=== PATIENT | male | born 1955 | race Hispanic/Latino ===

== ENCOUNTER 2022-04-24 21:44 | Inpatient (IN) | payer OTHER ==
[2022-04-24] MEDS ORDERED: NA CHLORIDE 0.9% 500 ML ONE (22:32)
[2022-04-24 22:56] LABS: Hematocrit 40.6 % (39.6-49.0); Lymphocytes % 25.2 % (15.3-44.8); MCV 86.8 fL (80-100); RBC Red Blood Cell Count 4.68 M/uL (4.33-5.43)
[2022-04-24 23:16] LABS: Albumin 3.8 g/dL (3.4-5.0); Bilirubin Total 0.4 mg/dL (0.2-1.0); Potassium 3.7 mmol/L (3.5-5.1); Protein, Total 7.8 g/dL (6.4-8.2)
[2022-04-24 23:26] LABS: Urine Blood 3+ (Negative); Urine Glucose Negative (Negative); Urine Protein 3+ (Negative); Urine Specific Gravity 1.015 (1.005-1.030); Urine pH 5.5 (5.0-7.0)
[2022-04-24] MEDS ORDERED: CEFTRIAXONE 2000 MG/VIAL ONE (23:37)
[2022-04-24] MEDS ORDERED: NA CHLORIDE 0.9% 100 ML ONE (23:38)
[2022-04-25 00:04] LABS: Urine Amorphous Sediment 2+ /HPF (NONE SEEN); Urine Bacteria >50 /HPF (NONE SEEN); Urine Mucus 3+ /HPF (NONE SEEN); Urine RBC TNTC /HPF (NONE SEEN)
[2022-04-25] MEDS ORDERED: METOPROLOL TAR 50 MG TAB ONE ×2 (00:23→07:45)
[2022-04-25] MEDS ORDERED: NA CHLORIDE 0.9% 1,000 ML ONE ×2 (00:24→04:25)
[2022-04-25] MEDS ORDERED: METOPROLOL TARTRATE 5 MG/5 ML INJ IV ONE ×2 (00:24→05:49)
[2022-04-25 00:36] LABS: Magnesium 2.1 mg/dL (1.8-2.4); Troponin High Sensitivity 6.6 pg/mL (<58.9)
--- NOTE | 2022-04-25 00:36 | ER ---
Nurse's Notes [facility] Name: Audie Harrison Age: 66 yrs Sex: Male : 1955 Arrival Date: 04/24/2022 Time: 21:49 Bed 5 Private MD: Diagnosis: UTI/ Urinary tract infection, site not specified;Unspecified atrial fibrillation Presentation: 04/24 22:03 Chief complaint: Spouse and/or significant other states: "He is bleeding from his penis tw5 when he urinates.". Coronavirus screen: Vaccine status: Patient reports receiving the 2nd dose of the covid vaccine. Moderna. Ebola Screen: Patient negative for fever greater than or equal to 101.5 degrees Fahrenheit, and additional compatible Ebola Virus Disease symptoms Patient denies exposure to infectious person. Patient denies travel to an Ebola-affected area in the 21 days before illness onset. Initial Sepsis Screen: Does the patient meet any 2 criteria? No. Patient's initial sepsis screen is negative. Does the patient have a suspected source of infection? No. Patient's initial sepsis screen is negative. Risk Assessment: Do you want to hurt yourself or someone else? Patient reports no desire to harm self or others. Onset of symptoms was April 24, 2022 at 21:00. 22:03 Method Of Arrival: Ambulatory tw5 22:03 Acuity: MERCED 3 tw5 Triage Assessment: 22:04 General: Appears in no apparent distress. Behavior is calm, cooperative, appropriate tw5 for age. Pain: Denies pain. Historical: - Allergies: 22:04 No Known Allergies; tw5 - Immunization history:: Flu vaccine is up to date. - Social history:: Smoking status: Patient reports the use of cigarette tobacco products, denies chronic smoking, but will smoke occasionally. Screenin:46 Abuse screen: Denies threats or abuse. Nutritional screening: No deficits noted. ag7 Tuberculosis screening: No symptoms or risk factors identified. Fall Risk No fall in past 12 months (0 pts). No secondary diagnosis (0 pts). IV access (20 points). Ambulatory Aid- None/Bed Rest/Nurse Assist (0 pts). Gait- Normal/Bed Rest/Wheelchair (0 pts) Mental Status- Oriented to own ability (0 pts). Total Glaser Fall Scale indicates No Risk (0-24 pts). Assessment: 22:12 General: Appears in no apparent distress. Behavior is calm, cooperative, appropriate ag7 for age. Pain: Denies pain. Neuro: Level of Consciousness is awake, alert, obeys commands, Oriented to person, place, situation, Appropriate for age. Cardiovascular: Heart tones S1 S2 present muffled Patient's skin is warm and dry. Respiratory: Airway is patent Trachea midline Respiratory effort is even, unlabored, Respiratory pattern is regular, symmetrical, Breath sounds are clear bilaterally. : Reports burning with urination, hematuria. 23:00 Reassessment: Patient and/or family updated on plan of care and expected duration. Pain ag7 level reassessed. Patient is alert, oriented x 3, equal unlabored respirations, skin warm/dry/pink. Patient denies pain at this time. 04/25 00:00 Reassessment: Patient and/or family updated on plan of care and expected duration. Pain ag7 level reassessed. Patient is alert, oriented x 3, equal unlabored respirations, skin warm/dry/pink. Patient denies pain at this time. Patient states feeling better. 01:30 Reassessment: Patient and/or family updated on plan of care and expected duration. Pain ag7 level reassessed. Patient is alert, oriented x 3, equal unlabored respirations, skin warm/dry/pink. Patient denies pain at this time. Patient states feeling better. Patient states symptoms have improved. 03:22 Reassessment: Irrigation started with [address] henry catheter infusing mid ag7 clamp, per Jl ALARM SIGNALER order patient tolerating well clear drainage noted in the catheter tube no blood clots assessed. 04:01 Reassessment: Irrigation stopped per Jl ALARM SIGNALER order. 800 ml of hematuria noted cola ag7 colored. 04:42 Reassessment: Report given to Brooke RAMSEY. ag7 Vital Signs: 04/24 22:00 BP 130 / 92; Pulse 95; Resp 18 S; Pulse Ox 96% on R/A; Pain 0/10; ag7 22:03 BP 120 / 85; Pulse 99; Resp 18; Temp 98.6; Pulse Ox 99% on R/A; Weight 122.47 kg; tw5 Height 5 ft. 8 in. (172.72 cm); Pain 0/10; 22:30 BP 130 / 119; Pulse 126; Resp 18 S; Pulse Ox 97% ; Pain 0/10; ag7 23:00 BP 92 / 64; Pulse 86; Resp 16 S; Pulse Ox 96% on R/A; Pain 0/10; ag7 23:15 BP 108 / 92; Pulse 143; Pulse Ox 96% on R/A; ag7 23:30 BP 92 / 64; Pulse 86; Resp 16 S; Pulse Ox 96% on R/A; ag7 04/25 00:00 BP 118 / 83; Pulse 90; Resp 16 S; Pulse Ox 96% on R/A; Pain 0/10; ag7 00:30 BP 115 / 84; Pulse 68; Resp 20 S; Pulse Ox 97% on R/A; Pain 0/10; ag7 01:00 BP 114 / 90; Pulse 59; Resp 20 S; Pulse Ox 96% ; Pain 0/10; ag7 02:05 BP 152 / 111; Pulse 105; Resp 19 S; Pulse Ox 95% on R/A; Pain 0/10; ag7 02:30 BP 98 / 58; Pulse 72; Resp 19 S; Pulse Ox 97% on R/A; Pain 0/10; ag7 03:01 BP 139 / 85; Pulse 60; Resp 19 S; Temp 98(O); Pulse Ox 96% on R/A; Pain 0/10; ag7 04/24 22:03 Body Mass Index 41.05 (122.47 kg, 172.72 cm) tw5 ED Course: 04/24 21:49 Patient arrived in ED. ja2 21:55 Channing Huizar PA is PHCP. cp 21:55 Asael Tucker MD is Attending Physician. cp 22:04 Triage completed. tw5 22:04 Arm band placed on Patient placed in an exam room. tw5 22:08 Treva Parks, ROXY is Primary Nurse. ag7 22:37 CBC with Diff Sent. ag7 22:37 CMP Sent. ag7 22:37 Lipase Sent. ag7 22:37 No provider procedures requiring assistance completed. Inserted saline lock: 20 gauge ag7 in right antecubital area, using aseptic technique. Blood collected. 22:38 Procalcitonin Sent. ag7 23:27 Urine Microscopic Only Sent. ag7 23:47 Patient has correct armband on for positive identification. Placed in gown. Bed in low ag7 position. Call light in reach. Adult w/ patient. 04/25 00:09 EKG done, by exhibit technician. reviewed by Channing MICHEL. oe 00:27 XRAY Chest (1 view) In Process Unspecified. EDMS 00:35 Christopher Carrillo MD is Hospitalizing Provider. cp 00:38 TSH Sent. ag7 00:38 Lactate Sent. ag7 00:39 Ptt, Activated Sent. ag7 00:39 Ptt, Activated Sent. ag7 00:40 UDS Sent. ag7 01:29 COVID-19 SARS RT PCR (Document "Date of Onset" if Symptomatic) Sent. ag7 01:35 Abdomen In Process Unspecified. EDMS 02:34 3-way catheter inserted, using sterile technique, 26 Fr. 50 ml hematuria noted. ag7 08:24 Patient admitted, IV remains in place. ap3 Administered Medications: 04/24 22:34 Drug: NS 0.9% 500 ml Route: IV; Rate: 250 ml/hr; Site: right antecubital; ag7 23:00 Follow up: IV Status: Completed infusion; IV Intake: 500ml ag7 23:41 Drug: Rocephin - (cefTRIAXone) 2 grams Route: IVPB; Infused Over: 30 mins; Site: right ag7 antecubital; 04/25 00:09 Follow up: IV Status: Completed infusion; IV Intake: 100ml ag7 00:30 Drug: Metoprolol 50 mg Route: PO; ag7 01:13 Follow up: Response: Marked relief of symptoms ag7 00:30 Drug: NS 0.9% 1000 ml Route: IV; Rate: 1 bolus; Site: right antecubital; ag7 01:50 Follow up: IV Status: Completed infusion; IV Intake: 1000ml ag7 00:37 Drug: Metoprolol 5 mg Route: IVP; Site: right antecubital; ag7 01:13 Follow up: Response: No adverse reaction; Marked relief of symptoms ag7 Medication: 04/24 23:47 VIS not applicable for this client. ag7 Intake: 23:00 IV: 500ml; Total: 500ml. ag7 04/25 00:09 IV: 100ml; Total: 600ml. ag7 01:50 IV: 1000ml; Total: 1600ml. ag7 Output: 02:34 Urine: 750ml (Voided); Total: 750ml. ag7 Outcome: 00:36 Decision to Hospitalize by Provider. cp 08:23 Admitted to ER Hold. Please see [facility] for further documentation. ap3 08:23 Condition: good 08:23 Instructed on the need for admit. 15:37 Patient left the ED. aa5 Signatures: Dispatcher [employer] EDMirela Sumner RN RN aa5 Channing Huizar PA PA cp Ramin Parikh Amanda RN RN ap3 Angely Candelaria Tiffany 5 Treva Parks RN RN ag7 Corrections: (The following items were deleted from the chart) 03:30 03:22 Reassessment: Irrigation started with [address] henry catheter ag7 infusing mid clamp, patient tolerating well clear drainage noted. ag7
--- NOTE | 2022-04-25 00:37 | EDPHYS ---
Physician Documentation [facility] Name: Audie Harrison Age: 66 yrs Sex: Male : 1955 Arrival Date: 04/24/2022 Time: 21:49 Bed 5 Private MD: ED Physician Asael Tukcer HPI: 04/24 22:10 This 66 yrs old Male presents to ER via Ambulatory with complaints of Urinary cp Problem. 22:10 The patient presents with urinary symptoms, dysuria, hematuria. Onset: The cp symptoms/episode began/occurred today. Associated signs and symptoms: Pertinent negatives: abdominal pain, constipation, fever, vomiting. 22:10 Severity of symptoms: in the emergency department the symptoms are unchanged, despite cp home interventions. Historical: - Allergies: 22:04 No Known Allergies; tw5 - Immunization history:: Flu vaccine is up to date. - Social history:: Smoking status: Patient reports the use of cigarette tobacco products, denies chronic smoking, but will smoke occasionally. ROS: 22:15 Constitutional: Negative for body aches, chills, fever, poor PO intake. cp 22:15 Eyes: Negative for injury, pain, redness, and discharge. cp 22:15 ENT: Negative for drainage from ear(s), ear pain, sore throat, difficulty swallowing, difficulty handling secretions. 22:15 Cardiovascular: Negative for chest pain, edema, palpitations. 22:15 Respiratory: Negative for cough, shortness of breath, wheezing. 22:15 Abdomen/GI: Negative for abdominal pain, vomiting, diarrhea, constipation, black/tarry stool, rectal bleeding. 22:15 Back: Negative for pain at rest, pain with movement. 22:15 : Positive for hematuria, burning with urination, Negative for pelvic pain, flank pain, testicular pain 22:15 Neuro: Negative for altered mental status, dizziness, headache, numbness, syncope, weakness. 22:15 All other systems are negative. Exam: 22:20 Constitutional: The patient appears in no acute distress, alert, awake, cp non-diaphoretic, non-toxic, well developed, well nourished, afebrile 22:20 Head/Face: Normocephalic, atraumatic. cp 22:20 Eyes: Periorbital structures: appear normal, Conjunctiva: normal, no exudate, no cp injection, Sclera: no appreciated abnormality, Lids and lashes: appear normal, bilaterally. 22:20 ENT: External ear(s): are unremarkable, Nose: is normal, Mouth: Lips: moist, Oral mucosa: moist, Posterior pharynx: Airway: no evidence of obstruction, patent. 22:20 Chest/axilla: Inspection: normal. 22:20 Cardiovascular: Rate: normal, Edema: is not appreciated, JVD: is not appreciated. 22:20 Respiratory: the patient does not display signs of respiratory distress, Respirations: normal, no use of accessory muscles, no retractions, labored breathing, is not present, Breath sounds: are clear throughout, no decreased breath sounds, no stridor, no wheezing. 22:20 Abdomen/GI: Inspection: abdomen appears normal, Bowel sounds: active, all quadrants, Palpation: abdomen is soft and non-tender, in all quadrants. 22:20 Back: CVA tenderness, is absent. 22:20 Neuro: Orientation: to person, place \\T\\ time. Mentation: is normal, Motor: moves all fours, strength is normal, Sensation: is normal. 22:20 Skin: cellulitis, is not appreciated, no rash present. cp Vital Signs: 22:00 BP 130 / 92; Pulse 95; Resp 18 S; Pulse Ox 96% on R/A; Pain 0/10; ag7 22:03 BP 120 / 85; Pulse 99; Resp 18; Temp 98.6; Pulse Ox 99% on R/A; Weight 122.47 kg; tw5 Height 5 ft. 8 in. (172.72 cm); Pain 0/10; 22:30 BP 130 / 119; Pulse 126; Resp 18 S; Pulse Ox 97% ; Pain 0/10; ag7 23:00 BP 92 / 64; Pulse 86; Resp 16 S; Pulse Ox 96% on R/A; Pain 0/10; ag7 23:15 BP 108 / 92; Pulse 143; Pulse Ox 96% on R/A; ag7 23:30 BP 92 / 64; Pulse 86; Resp 16 S; Pulse Ox 96% on R/A; ag7 06/10 00:00 BP 118 / 83; Pulse 90; Resp 16 S; Pulse Ox 96% on R/A; Pain 0/10; ag7 00:30 BP 115 / 84; Pulse 68; Resp 20 S; Pulse Ox 97% on R/A; Pain 0/10; ag7 01:00 BP 114 / 90; Pulse 59; Resp 20 S; Pulse Ox 96% ; Pain 0/10; ag7 02:05 BP 152 / 111; Pulse 105; Resp 19 S; Pulse Ox 95% on R/A; Pain 0/10; ag7 02:30 BP 98 / 58; Pulse 72; Resp 19 S; Pulse Ox 97% on R/A; Pain 0/10; ag7 03:01 BP 139 / 85; Pulse 60; Resp 19 S; Temp 98(O); Pulse Ox 96% on R/A; Pain 0/10; ag7 04/24 22:03 Body Mass Index 41.05 (122.47 kg, 172.72 cm) tw5 MDM: 04/24 22:02 Patient medically screened. cp 23:00 Differential diagnosis: UTI, prostatitis, urethritis, kidney stone. 04/25 00:52 Data reviewed: vital signs, nurses notes, lab test result(s), EKG, radiologic studies, cp plain films. Test interpretation: by ED physician or midlevel provider: ECG, plain radiologic studies. Physician consultation: Jl Cartwright was contacted at 00:45, regarding admission, to the telemetry unit. patient's condition, and will see patient in ED, shortly. 04/24 22:06 Order name: Urine Microscopic Only; Complete Time: 00:06 cp 04/25 00:07 Interpretation: Normal except: UWBC 10-20; URBC TNTC; UBACT >50; MUCUS 3+; AMORPH 2+. cp 04/24 22:06 Order name: CBC with Diff; Complete Time: 23:06 cp 04/24 23:16 Interpretation: Normal except: HGB 13.2; MPV 7.0. cp 04/24 22:06 Order name: CMP; Complete Time: 23:28 cp 04/24 23:29 Interpretation: Normal except: NA 135; GLUC 107; GLOB 4.0; A/G 1.0; AST 14. cp 04/24 22:06 Order name: Lipase; Complete Time: 23:28 cp 04/24 23:43 Interpretation: Reviewed. 04/24 22:06 Order name: Procalcitonin; Complete Time: 23:28 cp 04/24 23:43 Interpretation: Reviewed. 04/24 23:27 Order name: Urine Dipstick-Ancillary; Complete Time: 23:28 EDMS 04/24 23:29 Interpretation: UKET 1+; UBLD 3+; UPROT 3+; U NIT Positive; UESTR 3+. cp 04/25 00:09 Order name: Urine Culture EDMS 04/25 00:10 Order name: BNP; Complete Time: 00:42 cp 04/25 00:10 Order name: Magnesium; Complete Time: 00:42 cp 04/25 00:10 Order name: Troponin High Sensitivity; Complete Time: 00:42 cp 04/25 00:10 Order name: Ptt, Activated; Complete Time: 01:02 cp 04/25 00:10 Order name: Ptt, Activated cp 04/25 00:10 Order name: Lactate; Complete Time: 01:32 cp 04/25 00:21 Order name: TSH; Complete Time: 01:32 la1 04/24 22:06 Order name: Urine Dipstick-Ancillary (obtain specimen); Complete Time: 23:26 cp 04/24 22:06 Order name: IV Saline Lock; Complete Time: 22:34 cp 04/24 22:06 Order name: Labs collected and sent; Complete Time: 22:34 cp 04/24 23:55 Order name: EKG; Complete Time: 23:56 cp 04/24 23:55 Order name: EKG - Nurse/Tech; Complete Time: 00:09 cp 04/25 00:10 Order name: XRAY Chest (1 view) 04/25 00:21 Order name: UDS; Complete Time: 01:32 la1 04/25 01:09 Order name: Abdomen EDFL 04/25 01:14 Order name: COVID-19 SARS RT PCR (Document "Date of Onset" if Symptomatic) lp1 04/25 05:23 Order name: CBC with Automated Diff EDMS 04/25 05:43 Order name: Comprehensive Metabolic Panel EDFL 04/25 01:33 Order name: Beth-Three way: with bladder irrigation; Complete Time: 02:36 la1 Administered Medications: 04/24 22:34 Drug: NS 0.9% 500 ml Route: IV; Rate: 250 ml/hr; Site: right antecubital; ag7 23:00 Follow up: IV Status: Completed infusion; IV Intake: 500ml ag7 23:41 Drug: Rocephin - (cefTRIAXone) 2 grams Route: IVPB; Infused Over: 30 mins; Site: right ag7 antecubital; 04/25 00:09 Follow up: IV Status: Completed infusion; IV Intake: 100ml ag7 00:30 Drug: Metoprolol 50 mg Route: PO; ag7 01:13 Follow up: Response: Marked relief of symptoms ag7 00:30 Drug: NS 0.9% 1000 ml Route: IV; Rate: 1 bolus; Site: right antecubital; ag7 01:50 Follow up: IV Status: Completed infusion; IV Intake: 1000ml ag7 00:37 Drug: Metoprolol 5 mg Route: IVP; Site: right antecubital; ag7 01:13 Follow up: Response: No adverse reaction; Marked relief of symptoms ag7 Disposition Summary: 04/25/22 00:36 Hospitalization Ordered Hospitalization Status: Inpatient Admission cp Provider: Christopher Carrillo cp Condition: Stable cp Problem: new cp Symptoms: have improved cp Bed/Room Type: Standard cp Location: Telemetry/MedSurg (Inpatient)(04/25/22 15:19) eb Room Assignment: 407(04/25/22 15:19) eb Diagnosis - UTI/ Urinary tract infection, site not specified cp - Unspecified atrial fibrillation cp Forms: - Medication Reconciliation Form cp - SBAR form cp Addendum: 04/28/2022 10:16 Co-signature as Attending Physician, Asael Tucker MD. r n Signatures: Dispatcher [employer] EDAsael Vargas MD MD rn Attema, Lee, PROJECT DEVELOPMENT DIRECTOR-C PROJECT DEVELOPMENT DIRECTOR-Cla1 Channing Huizar PA PA cp Garcia, Cindy, RN Misti Minor Tiffany tw5 Treva Parks RN RN ag7 Corrections: (The following items were deleted from the chart) 04/24 23:29 23:28 Normal except: NA 135; GLUC 107; GLOB 4.0; A/G 1.0. cp cp 04/25 02:21 00:36 Telemetry/MedSurg (Inpatient) cp cg 02:21 00:36 cp cg 15:19 02:21 [facility] ER HOLD cg eb 15:19 02:21 ERHOLD- cg eb
[2022-04-25 01:14] LABS: Barbiturates NEGATIVE (NEGATIVE); Benzodiazepines NEGATIVE (NEGATIVE); Cocaine NEGATIVE (NEGATIVE); METHAMPHETAM NEGATIVE (NEGATIVE); Methadone NEGATIVE (NEGATIVE); Opiates NEGATIVE (NEGATIVE); Phencyclidine NEGATIVE (NEGATIVE); THC Cannibis POSITIVE (NEGATIVE)
[2022-04-25] MEDS ORDERED: NACL 0.9% IRR SOLN 2,000 ML IRR ONE (03:08)
[2022-04-25] MEDS ORDERED: MORPHINE 2 MG/ML SYR IV PRN (03:51)
[2022-04-25] MEDS ORDERED: ONDANSETRON 4 MG/2 ML VIAL IV PRN (03:51)
[2022-04-25] MEDS ORDERED: HYDROCODONE/APAP 5/325 MG TAB PO PRN (03:51)
[2022-04-25] MEDS: NA CHLORIDE 0.9% 1,000 ML IV SCH ×2 (04:00→17:14)
--- NOTE | 2022-04-25 04:01 | P.HP ---
Certification for Inpatient Patient admitted to: Inpatient With expected LOS: >2 Midnights Patient will require the following post-hospital care: None Practitioner: I am a practitioner with admitting privileges, knowledge of patient current condition, hospital course, and medical plan of care. Services: Services provided to patient in accordance with Admission requirements found in Title 42 Section 412.3 of the Code of Federal Regulations Patient History Date of Service: 04/25/22 Reason for admission: New onset A. fib, UTI History of Present Illness: 66-year-old male with a history of BPH presents the emergency department for hematuria, he was found to have urinary tract infection with urinalysis positive for nitrite, leukocyte, red blood cell urine microscopic shows greater than 50 bacteria 10-20 white blood cells too numerous to count red blood cells. During his stay in the emergency department patient developed A. fib RVR no history of A. fib his rate was around 150 160 he was given Lopressor IV and p.o., he has maintained A. fib rhythm but his rate is not controlled around 80 to 90 bpm. He had a three-way Beth catheter placed for irrigation to assess the degree of bleeding, he has had only very mild amount of bleeding during his stay in the emergency department which cleared quickly with irrigation, no obstruction or large clots noted. Urine cultures obtained patient was given Rocephin ED prior wishes to admit for further evaluation and management of new onset atrial fibrillation, UTI with hematuria. - Past Medical/Surgical History -: BPH -: Multisystem trauma with Ortho surgery of the legs Psychosocial/ Personal History: Patient lives at home with his - Family History Mother -: Diabetes - Social History Smoking Status: Current some day smoker Alcohol use: No CD- Drugs: No Caffeine use: Yes Place of Residence: Home Review of Systems 10-point ROS is otherwise unremarkable Genitourinary: Dysuria, Hematuria, As per HPI Physical Examination - Physical Exam General: Alert, In no apparent distress, Oriented x3 HEENT: Atraumatic, PERRLA, Mucous membr. moist/pink, EOMI, Sclerae nonicteric Neck: Supple, 2+ carotid pulse no bruit, No LAD, Without JVD or thyroid abnormality Respiratory: Clear to auscultation bilaterally, Normal air movement Cardiovascular: Normal S1 S2, Irregular heart rate/rhythm Capillary refill: <2 Seconds Gastrointestinal: Normal bowel sounds, No tenderness Musculoskeletal: No tenderness Integumentary: No rashes Neurological: Normal speech, Normal strength at 5/5 x4 extr, Normal tone, Normal affect Lymphatics: No axilla or inguinal lymphadenopathy Urinary: Beth catheter - Studies Laboratory Data (last 24 hrs) 04/25/22 00:20: APTT 39.2 H 04/24/22 22:35: Magnesium 2.1 04/24/22 22:35: Sodium 135 L, Potassium 3.7, BUN 16, Creatinine 0.69, Glucose 107 H, Total Bilirubin 0.4, AST 14 L, ALT 25, Alkaline Phosphatase 103, Lipase 228 04/24/22 22:35: WBC 7.8, Hgb 13.2 L, Hct 40.6, Plt Count 285 Assessment and Plan - Plan Assessment: New onset atrial fibrillation with rapid ventricular response UTI with hematuria Plan: New onset atrial fibrillation with rapid ventricular response: Rate now controlled after beta-antonio we will continue metoprolol 50 mg p.o. twice daily, cardiology consult in place echocardiogram ordered thyroid studies and UDS pending. We will hold off on anticoagulation given materia secondary to UTI. Appreciate further input from cardiology UTI with hematuria: Urine culture obtained patient started on Rocephin. Three- way catheter was placed in the ER he had some irrigation was returning clear urine without any large clots noted, CBI was discontinued given return of clear urine Beth catheter still in place. CT demonstrates enlarged prostate gland with impression and excrescence along the inferior aspect of the urinary bladder correlate with the PSA level also noted exophytic upper pole right renal cyst with rim wall calcification measuring 7.8 x 6.6 cm, discussed with patient recommend outpatient follow-up with urology once he is discharged for further evaluation of prostate/renal cyst. Patient and family verbalized understanding. Continue IV antibiotics. DVT PPX: SCD given hematuria Code status: Full Discharge Plan: Home Plan to discharge in: 48 Hours - Advance Directives Does patient have a Living Will: No Does patient have a Durable POA for Healthcare: No - Code Status/Comfort Care Code Status Assessed: Yes (Full code) Critical Care: No Time Spent Managing Pts Care (In Minutes): 70
[2022-04-25 04:15] VITALS: BMI 41.0
[2022-04-25 05:22] LABS: Absolute Lymphocytes (CBC) 1.6 K/uL (0.7-4.9); Hematocrit 43.4 % (39.6-49.0); Lymphocytes % 13.8 % (15.3-44.8); MCV 87.6 fL (80-100); MPV 7.3 fL (7.6-11.3); RBC Red Blood Cell Count 4.95 M/uL (4.33-5.43)
[2022-04-25 05:43] LABS: Albumin 3.7 g/dL (3.4-5.0); Bilirubin Total 0.5 mg/dL (0.2-1.0); Potassium 4.1 mmol/L (3.5-5.1); Protein, Total 7.8 g/dL (6.4-8.2)
[2022-04-25] MEDS ORDERED: METOPROLOL TARTRATE 5 MG/5 ML INJ IV STA (05:54)
--- NOTE | 2022-04-25 06:16 | EKG ---
Test Date: 2022-04-24 Test Time: 23:59:37 Building Mover: LETITIA MEASUREMENT RESULTS: Intervals: Rate: 148 AL: QRSD: 92 QT: 300 QTc: 471 [place]: P: AL: QRS: -58 T: 78 INTERPRETIVE STATEMENTS: Atrial fibrillation with rapid ventricular response Left axis deviation Minimal voltage criteria for LVH, may be normal variant Abnormal ECG Compared to ECG 10/31/2016 12:13:44 Left-axis deviation now present Left ventricular hypertrophy now present Sinus rhythm no longer present Left anterior fascicular block no longer present Myocardial infarct finding no longer present Electronically Signed On 04-25-22 06:15:40 CDT by Brad Jason
[2022-04-25] MEDS ORDERED: TAMSULOSIN 0.4 MG SR CAP ONE (07:45)
[2022-04-25] MEDS: TAMSULOSIN 0.4 MG SR CAP PO SCH (07:48)
[2022-04-25] MEDS ORDERED: METOPROLOL TAR 50 MG TAB PO SCH (09:00)
--- NOTE | 2022-04-25 10:58 | EKG ---
Test Date: 2022-04-25 Test Time: 00:00:28 Crate Builder: LETITIA MEASUREMENT RESULTS: Intervals: Rate: 144 MN: QRSD: 92 QT: 300 QTc: 464 [place]: P: MN: QRS: -61 T: 80 INTERPRETIVE STATEMENTS: Atrial fibrillation with rapid ventricular response Left anterior fascicular block Minimal voltage criteria for LVH, may be normal variant Abnormal ECG Compared to ECG 04/24/2022 23:59:37 Left anterior fascicular block now present Left-axis deviation no longer present Electronically Signed On 04-25-22 10:58:04 CDT by Brad Jason
--- NOTE | 2022-04-25 11:16 | ECHO ---
HEIGHT: 5 ft 8 in WEIGHT: 270 lb 0.002 oz DATE OF STUDY: 04/25/[address]: Jl Cartwright NP 2-DIMENSIONAL: YES M.MODE: YES DOPPLER: YES COLOR FLOW: YES TDS: NO PORTABLE: YES DEFINITY: NO BUBBLE STUDY: NO DIAGNOSIS: NEW ONSET ATRIAL FIBRILLATION CARDIAC HISTORY: CATHERIZATION: SURGERY: PROSTHETIC VALVE: PACEMAKER: MEASUREMENTS (cm) DIASTOLIC (NORMALS) SYSTOLIC (NORMALS) IVSd 1.4 (0.6-1.2) LA Diam 3.3 (1.9-4.0) LVEF 62% LVIDd 3.8 (3.5-5.7) LVIDs 2.6 (2.0-3.5) %FS 33% LVPWd 1.2 (0.6-1.2) Ao Diam 2.7 (2.0-3.7) 2 DIMENSIONAL ASSESSMENT: RIGHT ATRIUM: NORMAL LEFT ATRIUM: NORMAL RIGHT VENTRICLE: NORMAL LEFT VENTRICLE: NORMAL TRICUSPID VALVE: NORMAL MITRAL VALVE: NORMAL PULMONIC VALVE: NORMAL AORTIC VALVE: NORMAL PERICARDIAL EFFUSION: NONE AORTIC ROOT: NORMAL LEFT VENTRICULAR WALL MOTION: NORMAL DOPPLER/COLOR FLOW: NORMAL COMMENTS: ATRIAL FIBRILLATION. NORMAL LEFT ATRIAL SIZE. NO THROMBUS. NORMAL LEFT VENTRICULAR SIZE AND FUNCTION. TECHNOLOGIST: Yung ASH
[2022-04-25] MEDS: SOTALOL HCL 80 MG TAB PO SCH (17:06)
[2022-04-25 18:16] LABS: Urine Appearance TURBID (Clear); Urine Bilirubin Negative (Negative); Urine Blood 3+ (Negative); Urine Glucose Negative (Negative); Urine Protein 2+ (Negative); Urine Urobilinogen 0.2 mg/dL (0.2-1.0)
[2022-04-25 19:06] LABS: Urine Microscopic Reflex ORDER UMIC
[2022-04-25 19:18] LABS: Urine Bacteria 20-50 /HPF (NONE SEEN); Urine Color BROWN (Yellow); Urine RBC 20-50 /HPF (NONE SEEN)
[2022-04-25] MEDS: CEFTRIAXONE 1,000 MG in NA CHLORIDE 0.9% 50 ML IVPB SCH (21:34)
--- NOTE | 2022-04-25 23:00 | RAD REPORT ---
EXAM DESCRIPTION: CT - Abdomen Pelvis W Contrast - 04/25/2022 5:49 am CLINICAL HISTORY: 66 years, Male, Roger hematuria R/O obstruction COMPARISON: None TECHNIQUE: Contrast-enhanced images of the abdomen and pelvis were performed utilizing 2 mm slice th ickness at 2 mm interval reconstruction from the lung bases to the ischial tuberosities after the adm inistration IV contrast. In addition multiplanar reformats in the coronal and sagittal plane were obtained and reviewed. This exam was performed according to our departmental dose-optimization protocol, which includes auto mated exposure control, adjustment of the mA and/or kV according to patient size and/or use of iterat ceferino reconstruction technique. FINDINGS: The lung bases demonstrate to be clear. The liver, gallbladder, pancreas, spleen and adrenal glands demonstrate to be unremarkable, no focal lesions are noted. The kidneys demonstrate normal uptake of contrast media. No evidence for nephrolithiasis and/or hydro nephrosis. There is a exophytic upper pole right renal cysts with rim wall calcification measuring 7. 8 x 6.6 cm on image 37/59. Several other smaller cysts are noted within the right and left kidney Grossly the unopacified stomach, small bowel and large bowel demonstrate to be within normal limits. There is no evidence for bowel dilatation and/or free air. The appendix is normal. There is minimal diverticulosis within the sigmoid colon. The urinary bladder demonstrate to be unremarkable. The prostate gland is enlarged measuring 5.5 x 6.2 cm on image 86. There is impression and excrescence along the inferior aspect of the urinary blad angel measuring approximately 3.6 x 2.4 cm on sagittal image 79 and coronal image 77. The aorta demon strate minimal atherosclerotic disease extending into the aortic bifurcation. There is no retroperi toneal lymphadenopathy. There is no evidence for ascites/or significant abnormal fluid collections. The bone windows demonstrate mild diffuse bony osteopenia. Degenerative disc disease at L4-S1. There is ORIF of the left hip joint IMPRESSION: No evidence for nephrolithiasis and/or hydronephrosis. Enlarged prostate gland with impression and excrescence along the inferior aspect of the urinary blad angel correlate with the PSA level. Bilateral renal cysts. Degenerative disc disease at L4-S1. Electronically signed by: Reji Castellon MD 04/25/2022 1:58 AM CDT Due to temporary technical issues with the PACS/Fluency reporting system, reports are being signed by the in house radiologists without review as a courtesy to insure prompt reporting. The interpreting radiologist is fully responsible for the content of the report.
--- NOTE | 2022-04-25 23:03 | RAD REPORT ---
EXAM DESCRIPTION: RAD - Chest Single View - 04/25/2022 12:25 am CLINICAL HISTORY: 66 years, Male, afib COMPARISON: None FINDINGS: Single view of the chest was obtained portable. No prior films are available for compariso n. The cardiomediastinal silhouette demonstrate to be unremarkable. The heart is not enlarged. The thoracic aorta is tortuous with intimal calcification. The pulmonary vasculature is normal distributi on Costophrenic angles are sharp. No areas of consolidation or masses are seen. Multiple anchoring screws within the right shoulder corresponding to previous rotator cuff repair. The rest of the soft tissue and bony structures demonstrate to be unremarkable. IMPRESSION: No acute cardiopulmonary disease seen. Electronically signed by: Reji Castellon MD 04/25/2022 12:43 AM CDT Due to temporary technical issues with the PACS/Fluency reporting system, reports are being signed by the in house radiologists without review as a courtesy to insure prompt reporting. The interpreting radiologist is fully responsible for the content of the report.
[2022-04-26] MEDS: NA CHLORIDE 0.9% 1,000 ML IV SCH ×3 (03:11→20:00)
[2022-04-26 04:40] LABS: Absolute Lymphocytes (CBC) 1.5 K/uL (0.7-4.9); Hematocrit 35.6 % (39.6-49.0); Lymphocytes % 10.3 % (15.3-44.8); MCV 87.6 fL (80-100); RBC Red Blood Cell Count 4.06 M/uL (4.33-5.43)
[2022-04-26 05:10] LABS: Bilirubin Total 0.8 mg/dL (0.2-1.0); Potassium 3.6 mmol/L (3.5-5.1); Protein, Total 6.6 g/dL (6.4-8.2)
[2022-04-26] MEDS: SOTALOL HCL 80 MG TAB PO SCH ×2 (05:45→18:47)
[2022-04-26] MEDS: TAMSULOSIN 0.4 MG SR CAP PO SCH (08:14)
[2022-04-26] MEDS ORDERED: POTASSIUM CL SA 10 MEQ TAB PO ONE (09:00)
--- NOTE | 2022-04-26 10:59 | CON ---
Date of Consultation: 04/25/2022 Reason For Consultation: New onset atrial fibrillation. History Of Present Illness: Mr. Harrison is a 66-year-old male without any past medical history, who ca me in with UTI and was found to have an atrial fibrillation with rapid ventricular response. He hiral ed any symptoms of palpitation, but was found in rapid AFib. He came in with UTI and he has a positi ve THC screen on his urinalysis. His white count was 11,000, otherwise everything else looked within normal limit. He denied any chest pain or syncope or palpitation. Denied fever, had some chills. Denied any unexplained nausea, vomiting, diaphoresis, PND, orthopnea, or pedal edema. Past Medical History: Negative. Allergies: NONE. Medications: At home are none. Review of Systems: Negative. Social History: Negative. Family History: Negative. Physical Examination: Vital Signs: He was in AFib at a rate of 130. HEENT: Negative. Neck: Supple without bruit, lymphadenopathy, JVD, or thyromegaly. Chest: Clear to auscultation and percussion. Cardiac: Revealed atrial fibrillation. Abdomen: Benign. Extremities: Revealed no clubbing, cyanosis, or edema. Diagnostic Data: As stated earlier. Impression And Plan: New onset atrial fibrillation, incidental finding, may be secondary to his urin hussain tract infection and THC use. Nevertheless, I would continue Lovenox, obtain a 2D echocardiogram, continue antibiotics, continue metoprolol, consider switching to sotalol 80 b.i.d. I will continue to follow him. KIMBERLY/RUSSELL Voice ID: [id number] Report ID: [id number]
--- NOTE | 2022-04-26 12:17 | PN ---
Date of Progress Note: 04/26/2022 Mr. Harrison had come in with atrial fibrillation, positive THC on his urinalysis, urinary tract infecti on. He is on antibiotics. Yesterday, I put him on sotalol 80 b.i.d. Today, he is in normal sinus r hythm. His echocardiogram was normal. As far as I am concerned, he can go home on sotalol. His ech o is normal. I think aspirin is plenty as far as anticoagulation. He should probably go home on ant ibiotics. I will see him in the office in the near future for an outpatient stress test and an appoi ntment. KIMBERLY/RUSSELL Voice ID: [id number] Report ID: [id number]
--- NOTE | 2022-04-26 15:22 | P.PN ---
Subjective Date of Service: 04/26/22 Chief Complaint: New onset A. fib, UTI Subjective: No new changes, Improving Physical Examination - Vital Signs Temperature: 97.7 F Blood Pressure: 140/69 Pulse: 66 Respirations: 18 Pulse Ox (%): 95 - Physical Exam General: Alert, Oriented x3 HEENT: Atraumatic, Normocephalic Neck: Supple Respiratory: Normal air movement Cardiovascular: Regular rate/rhythm, Normal S1 S2 Gastrointestinal: Soft and benign Musculoskeletal: No swelling Neurological: Normal speech, Normal strength at 5/5 x4 extr Assessment And Plan - Plan Assessment and Plan - Plan Assessment: New onset atrial fibrillation with rapid ventricular response UTI with hematuria Plan: New onset atrial fibrillation with rapid ventricular response: On sotalol for rate control as per cardiology. Echocardiogram done pending report. We will continue telemetry. Cardiology following UTI with hematuria: Urine more clear with Beth catheterization. Deemed complication of BPH. Continue tamsulosin and finasteride. For outpatient urology evaluation. DVT PPX: SCD for DVT Code status: Full Discharge Plan: Home.
[2022-04-26] MEDS: CEFTRIAXONE 1,000 MG in NA CHLORIDE 0.9% 50 ML IVPB SCH (20:52)
[2022-04-27] MEDS: NA CHLORIDE 0.9% 1,000 ML IV SCH ×3 (01:23→21:11)
[2022-04-27] MEDS: SOTALOL HCL 80 MG TAB PO SCH ×2 (05:52→17:24)
[2022-04-27] MEDS: FINASTERIDE 5 MG TAB PO SCH (07:56)
[2022-04-27] MEDS: TAMSULOSIN 0.4 MG SR CAP PO SCH (07:56)
[2022-04-27 08:04] LABS: Potassium 3.7 mmol/L (3.5-5.1)
--- NOTE | 2022-04-27 13:32 | P.PN ---
Subjective Date of Service: 04/27/22 Chief Complaint: New onset A. fib, UTI Subjective: No new changes, Improving Physical Examination - Vital Signs Temperature: 99.0 F Blood Pressure: 114/65 Pulse: 64 Respirations: 18 Pulse Ox (%): 97 - Physical Exam General: Alert, Oriented x3 HEENT: Atraumatic, Normocephalic Neck: Supple Respiratory: Normal air movement Cardiovascular: Regular rate/rhythm, Normal S1 S2 Gastrointestinal: Soft and benign Musculoskeletal: No swelling Neurological: Normal speech - Studies Microbiology Data (last 24 hrs): 04/24/22 23:21 Clean Catch Urine [place] Count - Final >100,000 CFU/ML. 04/24/22 23:21 Clean Catch Urine - Final Escherichia Coli Assessment And Plan - Plan Assessment and Plan - Plan Assessment: New onset atrial fibrillation with rapid ventricular response UTI with hematuria Plan: New onset atrial fibrillation with rapid ventricular response: On sotalol for rate control as per cardiology. Echocardiogram done normal EF as per cardiology. We will continue telemetry. Cardiology following UTI with hematuria: Urine still hemorrhagic. Deemed complication of BPH. Continue tamsulosin and finasteride. E coli on urine culture. For urology evaluation due to complex cyst and persistent hematuria. DVT PPX: SCD for DVT Code status: Full Discharge Plan: Home in 24-48hr.
[2022-04-27] MEDS: CEFTRIAXONE 1,000 MG in NA CHLORIDE 0.9% 50 ML IVPB SCH (21:12)
[2022-04-28] MEDS: SOTALOL HCL 80 MG TAB PO SCH ×2 (05:50→17:05)
[2022-04-28 06:32] LABS: Potassium 3.8 mmol/L (3.5-5.1)
[2022-04-28] MEDS: FINASTERIDE 5 MG TAB PO SCH (08:03)
[2022-04-28] MEDS: TAMSULOSIN 0.4 MG SR CAP PO SCH (08:03)
[2022-04-28] MEDS: NA CHLORIDE 0.9% 1,000 ML IV SCH (08:03)
[2022-04-28] MEDS ORDERED: POTASSIUM CL SA 10 MEQ TAB PO ONE (09:00)
[2022-04-28] MEDS: AMOX/K CLAV 875 MG TAB PO SCH (20:04)
[2022-04-29] MEDS: SOTALOL HCL 80 MG TAB PO SCH ×2 (06:24→17:35)
[2022-04-29] MEDS: AMOX/K CLAV 875 MG TAB PO SCH ×2 (09:27→20:47)
[2022-04-29] MEDS: TAMSULOSIN 0.4 MG SR CAP PO SCH (09:27)
[2022-04-29] MEDS: FINASTERIDE 5 MG TAB PO SCH (09:27)
[2022-04-30] MEDS: SOTALOL HCL 80 MG TAB PO SCH ×2 (07:07→17:33)
--- NOTE | 2022-04-30 08:26 | P.PN ---
Date of Service: 04/28/22 Subjective Subjective: No new changes, Improving Physical Examination - Vital Signs REVIEWED - Physical Exam General: Alert, Oriented x3 Respiratory: Normal air movement Cardiovascular: Regular rate/rhythm, Normal S1 S2 Gastrointestinal: Soft and benign Musculoskeletal: No swelling Neurological: Normal speech Assessment and Plan Assessment: New onset atrial fibrillation with rapid ventricular response UTI with hematuria Plan: New onset atrial fibrillation with rapid ventricular response: On sotalol for rate control as per cardiology. Echocardiogram done normal EF as per cardiology. We will continue telemetry. Cardiology following UTI with hematuria: Continue tamsulosin and finasteride. E coli on urine culture. Spoke with urology and at this time they are recommending outpatient follow-up. We will leave Beth catheter in place. DVT PPX: SCD for DVT Code status: Full Discharge Plan: Home in 24-48hr.
--- NOTE | 2022-04-30 08:28 | P.PN ---
Date of Service: 04/29/22 Subjective Subjective: Patient continues to do better. Patient denies any new complaints. Still having some hematuria. Spoke with urology. Working on placement at [facility] rehab. Physical Examination - Vital Signs REVIEWED - Physical Exam General: Alert, Oriented x3 Respiratory: Normal air movement Cardiovascular: Regular rate/rhythm, Normal S1 S2 Gastrointestinal: Soft and benign Musculoskeletal: No swelling Neurological: Normal speech Assessment and Plan Assessment: New onset atrial fibrillation with rapid ventricular response UTI with hematuria Plan: New onset atrial fibrillation with rapid ventricular response: On sotalol for rate control as per cardiology. Echocardiogram done normal EF as per cardiology. We will continue telemetry. Cardiology following UTI with hematuria: Continue tamsulosin and finasteride. E coli on urine culture. Spoke with urology and at this time they are recommending outpatient follow-up. We will leave Beth catheter in place. DVT PPX: SCD for DVT Code status: Full Discharge Plan: Home in 24-48hr.
--- NOTE | 2022-04-30 08:29 | P.PN ---
Date of Service: 04/30/22 Subjective Subjective: Patient working with physical therapy. Still some mild hematuria. Plan to transfer to [facility]. Physical Examination - Vital Signs REVIEWED - Physical Exam General: Alert, Oriented x3 Respiratory: Clear bilaterally Cardiovascular: Regular rate/rhythm, Normal S1 S2 Gastrointestinal: Soft and benign Musculoskeletal: No swelling Neurological: Normal speech Assessment and Plan Assessment: New onset atrial fibrillation with rapid ventricular response UTI with hematuria Plan: New onset atrial fibrillation with rapid ventricular response: On sotalol for rate control as per cardiology. Echocardiogram done normal EF as per cardiology. We will continue telemetry. Cardiology following UTI with hematuria: Continue tamsulosin and finasteride. E coli on urine culture. Spoke with urology and at this time they are recommending outpatient follow-up. We will leave Beth catheter in place. DVT PPX: SCD for DVT Code status: Full Discharge Plan: Home in 24-48hr.
[2022-04-30] MEDS: AMOX/K CLAV 875 MG TAB PO SCH ×2 (09:11→20:46)
[2022-04-30] MEDS: TAMSULOSIN 0.4 MG SR CAP PO SCH (09:12)
[2022-04-30] MEDS: FINASTERIDE 5 MG TAB PO SCH (09:12)
[2022-04-30 09:14] LABS: Absolute Lymphocytes (CBC) 1.4 K/uL (0.7-4.9); Hematocrit 37.5 % (39.6-49.0); Lymphocytes % 10.7 % (15.3-44.8); MCV 85.9 fL (80-100); MPV 6.8 fL (7.6-11.3); RBC Red Blood Cell Count 4.36 M/uL (4.33-5.43)
[2022-04-30 09:31] LABS: Albumin 2.6 g/dL (3.4-5.0); Bilirubin Total 0.6 mg/dL (0.2-1.0); Magnesium 2.2 mg/dL (1.8-2.4); Potassium 3.9 mmol/L (3.5-5.1); Protein, Total 7.3 g/dL (6.4-8.2)
[2022-05-01 06:17] LABS: Absolute Lymphocytes (CBC) 1.6 K/uL (0.7-4.9); Hematocrit 33.8 % (39.6-49.0); MCV 87.1 fL (80-100); MPV 6.6 fL (7.6-11.3); RBC Red Blood Cell Count 3.88 M/uL (4.33-5.43)
[2022-05-01 06:37] LABS: Albumin 2.3 g/dL (3.4-5.0); Bilirubin Total 0.5 mg/dL (0.2-1.0); Potassium 3.9 mmol/L (3.5-5.1); Protein, Total 6.6 g/dL (6.4-8.2)
--- NOTE | 2022-05-01 07:05 | P.PN ---
Date of Service: 05/01/22 Subjective Subjective: Patient is ambulating a little bit with physical therapy. Walking about 10 to 15 feet. His strength is slowly improving. Continue with medication for rate control. Holding anticoagulation because of the hematuria. I did speak with urology and they will follow-up as an outpatient. Neurology is out of town and unavailable at this admission. Physical Examination - Vital Signs REVIEWED - Physical Exam General: Alert, Oriented x3 Respiratory: Clear bilaterally Cardiovascular: Regular rate/rhythm, Normal S1 S2 Gastrointestinal: Soft and benign Musculoskeletal: No swelling Neurological: Normal speech Assessment and Plan Assessment: New onset atrial fibrillation with rapid ventricular response UTI with hematuria Plan: New onset atrial fibrillation with rapid ventricular response: On sotalol for rate control as per cardiology. Holding anticoagulation because of hematuria Echocardiogram done normal EF as per cardiology. We will continue telemetry. Cardiology following UTI with hematuria: Continue tamsulosin and finasteride. E coli on urine culture. Spoke with urology and at this time they are recommending outpatient follow-up. We will leave Beth catheter in place. DVT PPX: SCD for DVT Code status: Full Discharge Plan: Home in 24-48hr.
[2022-05-01] MEDS: SOTALOL HCL 80 MG TAB PO SCH ×2 (07:08→17:10)
[2022-05-01 07:56] LABS: Blood Morphology Comment NOT SEEN (NOT SEEN); Platelet Estimate ADEQ
[2022-05-01] MEDS: FINASTERIDE 5 MG TAB PO SCH (08:32)
[2022-05-01] MEDS: AMOX/K CLAV 875 MG TAB PO SCH ×2 (08:32→20:10)
[2022-05-01] MEDS: TAMSULOSIN 0.4 MG SR CAP PO SCH (08:32)
[2022-05-01] MEDS: ENSURE HIGH PROTEIN 237 ML CAN PO SCH ×3 (08:33→20:11)
[2022-05-01] MEDS ORDERED: POTASSIUM CL SA 10 MEQ TAB PO ONE (09:00)
[2022-05-02] MEDS: SOTALOL HCL 80 MG TAB PO SCH ×2 (05:19→17:49)
[2022-05-02 06:17] LABS: Absolute Lymphocytes (CBC) 1.5 K/uL (0.7-4.9); Hematocrit 34.8 % (39.6-49.0); Lymphocytes % 11.7 % (15.3-44.8); MCV 86.4 fL (80-100); MPV 6.5 fL (7.6-11.3); RBC Red Blood Cell Count 4.03 M/uL (4.33-5.43)
[2022-05-02 06:34] LABS: Albumin 2.3 g/dL (3.4-5.0); Bilirubin Total 0.5 mg/dL (0.2-1.0); Potassium 4.2 mmol/L (3.5-5.1); Protein, Total 6.8 g/dL (6.4-8.2)
[2022-05-02] MEDS: TAMSULOSIN 0.4 MG SR CAP PO SCH (08:19)
[2022-05-02] MEDS: FINASTERIDE 5 MG TAB PO SCH (08:19)
[2022-05-02] MEDS: AMOX/K CLAV 875 MG TAB PO SCH ×2 (08:19→21:25)
[2022-05-02] MEDS: ENSURE HIGH PROTEIN 237 ML CAN PO SCH ×3 (08:20→21:00)
--- NOTE | 2022-05-03 00:59 | P.PN ---
Date of Service: 05/02/22 Subjective Subjective: Patient working with physical therapy. Still some mild hematuria. Plan to transfer to [facility]. Physical Examination - Vital Signs REVIEWED - Physical Exam General: Alert, Oriented x3 Respiratory: Clear bilaterally Cardiovascular: irregular irregular Gastrointestinal: Soft and benign; hematuria Musculoskeletal: No swelling Neurological: Normal speech Assessment and Plan Assessment: New onset atrial fibrillation with rapid ventricular response UTI with hematuria Plan: New onset atrial fibrillation with rapid ventricular response: Continue sotalol for rate control as per cardiology. Holding anticoagulation because of hematuria; Echocardiogram done normal EF as per cardiology. We will continue telemetry. Cardiology following UTI with hematuria: Continue tamsulosin and finasteride. E coli on urine culture. Spoke with urology and at this time they are recommending outpatient follow-up. We will leave Beth catheter in place. DVT PPX: SCD for DVT Code status: Full Discharge Plan: Home in 24-48hr.
[2022-05-03] MEDS: SOTALOL HCL 80 MG TAB PO SCH ×2 (06:27→17:20)
[2022-05-03] MEDS: ENSURE HIGH PROTEIN 237 ML CAN PO SCH ×3 (09:00→20:31)
[2022-05-03] MEDS: TAMSULOSIN 0.4 MG SR CAP PO SCH (09:30)
[2022-05-03] MEDS: FINASTERIDE 5 MG TAB PO SCH (09:30)
[2022-05-03] MEDS: AMOX/K CLAV 875 MG TAB PO SCH ×2 (09:30→20:28)
--- NOTE | 2022-05-03 11:31 | RAD REPORT ---
EXAM DESCRIPTION: US - Urinary Bladder - 05/03/2022 8:49 am CLINICAL HISTORY: Beth catherter placement verification Pelvic pain COMPARISON: Chest Single View dated 04/25/2022 TECHNIQUE: Real-time sonographic evaluation of the urinary bladder was performed. FINDINGS: Beth catheter bulb is visualized within the urinary bladder. The bladder, however, is dec ompressed.
[2022-05-04] MEDS: SOTALOL HCL 80 MG TAB PO SCH ×2 (05:39→17:32)
[2022-05-04] MEDS: FINASTERIDE 5 MG TAB PO SCH (08:22)
[2022-05-04] MEDS: AMOX/K CLAV 875 MG TAB PO SCH ×2 (08:22→20:14)
[2022-05-04] MEDS: TAMSULOSIN 0.4 MG SR CAP PO SCH (08:22)
[2022-05-04] MEDS: ENSURE HIGH PROTEIN 237 ML CAN PO SCH ×3 (08:23→20:14)
--- NOTE | 2022-05-04 14:25 | P.PN ---
Date of Service: 05/03/22 Subjective Subjective: Pt is improving; walking with therapy. Doing well; denied by [facility] Physical Examination - Vital Signs REVIEWED - Physical Exam General: Alert, Oriented x3 Respiratory: Clear bilaterally Cardiovascular: irregular irregular Gastrointestinal: Soft and benign; hematuria; Musculoskeletal: No swelling Neurological: Normal speech Assessment and Plan Assessment: New onset atrial fibrillation with rapid ventricular response UTI with hematuria Plan: New onset atrial fibrillation with rapid ventricular response: Cont. sotalol for rate control as per cardiology. Holding anticoagulation because of hematuria; Echocardiogram done; normal EF as per cardiology. We will continue telemetry. Cardiology continues following UTI with hematuria: Continue tamsulosin and finasteride. E coli on urine culture. Spoke with urology and at this time they are recommending outpatient follow-up. DVT PPX: SCD for DVT Code status: Full Discharge Plan: Home in 24-48hr.
--- NOTE | 2022-05-04 14:45 | P.PN ---
Date of Service: 05/04/22 Subjective Subjective: Patient continues to improve; strength is improving. Denied inpatient rehab. Patient wanting home with HH. Patient is supposed to follow-up with Urology as an outpt. Physical Examination - Vital Signs REVIEWED - Physical Exam General: Alert, Oriented x3 Respiratory: Clear bilaterally Cardiovascular: irregular irregular Gastrointestinal: Soft and benign; hematuria; Musculoskeletal: Minimal swelling Neurological: No focal deficits Assessment and Plan Assessment: New onset atrial fibrillation with rapid ventricular response UTI with hematuria Plan: New onset atrial fibrillation with rapid ventricular response: Cont. sotalol for rate control as per cardiology. Holding anticoagulation because of hematuria; Echocardiogram done; normal EF as per cardiology. We will continue telemetry. Cardiology continues following UTI with hematuria: Continue tamsulosin and finasteride. E coli on urine culture. Spoke with urology and at this time they are recommending outpatient follow-up. DVT PPX: SCD for DVT Code status: Full Discharge Plan: Home in 24-48hr.
[2022-05-05] MEDS: SOTALOL HCL 80 MG TAB PO SCH ×2 (05:17→17:26)
[2022-05-05 06:07] LABS: Absolute Lymphocytes (CBC) 1.7 K/uL (0.7-4.9); Hematocrit 32.9 % (39.6-49.0); MCV 86.4 fL (80-100); MPV 6.7 fL (7.6-11.3); RBC Red Blood Cell Count 3.81 M/uL (4.33-5.43)
[2022-05-05 06:18] LABS: Potassium 4.2 mmol/L (3.5-5.1)
[2022-05-05] MEDS: TAMSULOSIN 0.4 MG SR CAP PO SCH (08:58)
[2022-05-05] MEDS: AMOX/K CLAV 875 MG TAB PO SCH ×2 (08:58→21:36)
[2022-05-05] MEDS: FINASTERIDE 5 MG TAB PO SCH (08:58)
[2022-05-05] MEDS: ENSURE HIGH PROTEIN 237 ML CAN PO SCH ×3 (08:59→21:37)
--- NOTE | 2022-05-05 14:09 | P.PN ---
Subjective Date of Service: 05/05/22 Chief Complaint: New onset A. fib, UTI Subjective: No new changes Physical Examination - Vital Signs Temperature: 97.4 F Blood Pressure: 108/59 Pulse: 62 Respirations: 16 Pulse Ox (%): 96 Assessment And Plan Physician Review: Patient Assessed, Agree with Above Assessment and Plan Physician Review Additional Text: 05/05/22 14:07 - Physical Exam General: Alert, Oriented x3 Respiratory: Clear bilaterally Cardiovascular: irregular irregular Gastrointestinal: Soft and benign; hematuria; Musculoskeletal: Minimal swelling Neurological: No focal deficits Assessment and Plan Assessment: New onset atrial fibrillation with rapid ventricular response UTI with hematuria Plan: New onset atrial fibrillation with rapid ventricular response: Rate controlled Continue sotalol On hold anticoagulation for now due to hematuria Echocardiogram done; normal EF as per cardiology. Cardiology continues following E. coli UTI with hematuria: Improved Now with urinary retention, continue Beth Continue tamsulosin and finasteride. Status post previously discussed with urologyrecommend keep Beht and outpatient follow-up with Dr. José felix DVT PPX: SCD for DVT Code status: Full Discharge Plan: Denied by acute rehab, currently appealed, considering home with PT, case management Possible home in a.m since able to ambulate up to 50 feet now. Time Spent Managing PTS Care (In Minutes): 35
[2022-05-06 05:12] VITALS: O2SAT 97
[2022-05-06] MEDS: SOTALOL HCL 80 MG TAB PO SCH ×2 (06:06→20:48)
[2022-05-06] MEDS: ENSURE HIGH PROTEIN 237 ML CAN PO SCH ×3 (09:00→20:44)
[2022-05-06] MEDS: AMOX/K CLAV 875 MG TAB PO SCH ×2 (09:00→20:44)
[2022-05-06] MEDS: TAMSULOSIN 0.4 MG SR CAP PO SCH (10:43)
[2022-05-06] MEDS: FINASTERIDE 5 MG TAB PO SCH (10:43)
--- NOTE | 2022-05-06 14:16 | P.DS ---
Admission Date: 04/25/22 Discharge Date: 05/06/22 Disposition: ROUTINE DISCHARGE Discharge Condition: GOOD Reason for Admission: New onset A. fib, UTI Brief History of Present Illness: History of Present Illness: 66-year-old male with a history of BPH presents the emergency department for hematuria, he was found to have urinary tract infection with urinalysis positive for nitrite, leukocyte, red blood cell urine microscopic shows greater than 50 bacteria 10-20 white blood cells too numerous to count red blood cells. During his stay in the emergency department patient developed A. fib RVR no history of A. fib his rate was around 150 160 he was given Lopressor IV and p.o., he has maintained A. fib rhythm but his rate is not controlled around 80 to 90 bpm. He had a three-way Beth catheter placed for irrigation to assess the degree of bleeding, he has had only very mild amount of bleeding during his stay in the emergency department which cleared quickly with irrigation, no obstruction or large clots noted. Urine cultures obtained patient was given Rocephin ED prior wishes to admit for further evaluation and management of new onset atrial fibrillation, UTI with hematuria. - Past Medical/Surgical History -: BPH -: Multisystem trauma with Ortho surgery of the legs Hospital Course: Hospital course Patient admitted for new onset A. fib as well as E- coli cystitis with hematuria. He was evaluated by cardiology. He had an echocardiogram, with findings of normal EF of 60% and no valvular abnormality. He was started on rate control as well as anticoagulation which was later held due to persistent hematuria. Beth was placed and hematuria resolved. Patient recommended by urology to keep Beth until complete antibiotics course and follow-up with urology as outpatient. Patient hospital course was complicated with weakness. He has difficulty ambulating. He he was felt might benefit from SNF versus inpatient rehab. Rehab evaluation was done but patient was declined for acute rehab at [facility] by insurance. Case management is assisting with home hospital bed as well as home PT. Patient has been medically stable. He will be discharged home today. He will complete his Augmentin antibiotics because on 05/08/22 - Physical Exam General: Alert, In no apparent distress, Oriented x3 HEENT: Atraumatic, PERRLA, Mucous membr. moist/pink, EOMI, Sclerae nonicteric Neck: Supple, 2+ carotid pulse no bruit, No LAD, Without JVD or thyroid abnormality Respiratory: Clear to auscultation bilaterally, Normal air movement Cardiovascular: Normal S1 S2, Irregular heart rate/rhythm Capillary refill: <2 Seconds Gastrointestinal: Normal bowel sounds, No tenderness Musculoskeletal: No tenderness Integumentary: No rashes Neurological: Normal speech, Normal strength at 5/5 x4 extr, Normal tone, Normal affect Lymphatics: No axilla or inguinal lymphadenopathy Urinary: Beth catheter Vital Signs/Physical Exam: Temp Pulse Resp BP Pulse Ox 97.3 F 63 18 108/60 96 05/06/22 12:00 05/06/22 12:00 05/06/22 12:00 05/06/22 12:00 05/06/22 12:00 Laboratory Data at Discharge: WBC 11.9 K/uL (4.3-10.9) H 05/05/22 05:28 Hgb 11.0 g/dL (13.6-17.9) L 05/05/22 05:28 Hct 32.9 % (39.6-49.0) L 05/05/22 05:28 Plt Count 425 K/uL (152-406) H D 05/05/22 05:28 APTT 39.2 SECONDS (24.3-36.9) H 04/25/22 00:20 Sodium 131 mmol/L (136-145) L 05/05/22 05:28 Potassium 4.2 mmol/L (3.5-5.1) 05/05/22 05:28 BUN 14 mg/dL (7-18) 05/05/22 05:28 Creatinine 0.53 mg/dL (0.55-1.3) L 05/05/22 05:28 Glucose 116 mg/dL (74-106) H 05/05/22 05:28 Magnesium 2.0 mg/dL (1.8-2.4) 05/05/22 05:28 Total Bilirubin 0.5 mg/dL (0.2-1.0) 05/02/22 06:03 AST 56 U/L (15-37) H 05/02/22 06:03 ALT 138 U/L (12-78) H 05/02/22 06:03 Alkaline Phosphatase 95 U/L (45-117) 05/02/22 06:03 Lipase 228 U/L (73-393) 04/24/22 22:35 Home Medications: Ensure High Protein 237 ml PO TID #90 can 05/03/22 Finasteride [Proscar*] 5 mg PO DAILY #30 tab 05/03/22 Hydrocodone 5/APAP 325 [[place] 5/325*] 1 tab PO Q6H PRN #30 tab 05/03/22 Sotalol HCl [Betapace*] 80 mg PO BID 6AM 6PM #60 tab 05/03/22 Tamsulosin [Flomax*] 0.8 mg PO BEDTIME #60 cap 05/03/22 Amox/Clavulanate [Augmentin 875-125 Tab] 1 each PO BID #4 tab 05/06/22 New Medications: Amox/Clavulanate [Augmentin 875-125 Tab] 1 each PO BID #4 tab Sotalol HCl [Betapace*] 80 mg PO BID 6AM 6PM #60 tab Ensure High Protein 237 ml PO TID #90 can Tamsulosin [Flomax*] 0.8 mg PO BEDTIME #60 cap Hydrocodone 5/APAP 325 [[place] 5/325*] 1 tab PO Q6H PRN #30 tab PRN Reason: Pain Scale 5-7 (Moderate) Finasteride [Proscar*] 5 mg PO DAILY #30 tab Physician Discharge Instructions: -DC IV and DC home with home health -Follow-up with PCP in 1 to 2 weeks -Follow-up with Cardiology in 1 to 2 weeks -Follow-up with urology, Dr. Chaney, in 1 to 2 weeks; please send copy of CT scan report with patient. -Please call Dr. Lewis at [phone] if any questions regarding hospital stay -Please call nursing station at [phone] if any nursing or medication questions -Return to the emergency room if symptoms worsen Diet: AHA Activity: Fall precautions Followup: OOT,OOT [Primary Care Provider] - Time spent managing pt's care (in minutes): 35
[2022-05-07 04:08] VITALS: TEMP 97.6
[2022-05-07] MEDS: SOTALOL HCL 80 MG TAB PO SCH (06:28)
[2022-05-07] MEDS: TAMSULOSIN 0.4 MG SR CAP PO SCH (09:51)
[2022-05-07] MEDS: AMOX/K CLAV 875 MG TAB PO SCH (09:51)
[2022-05-07] MEDS: ENSURE HIGH PROTEIN 237 ML CAN PO SCH (09:52)
[2022-05-07] MEDS: FINASTERIDE 5 MG TAB PO SCH (09:52)
--- NOTE | 2022-05-07 10:12 | RAD REPORT ---
EXAM DESCRIPTION: US - Scrotum Testicles - 05/07/2022 9:25 am CLINICAL HISTORY: Testicular pain COMPARISON: None FINDINGS: Right testicle measures 3.6 x 2.6 x 2.5 centimeters. Echotexture is homogeneous. Normal bl ood flow Left testicle measures 3.5 x 2.3 x 2.4 centimeters. Echotexture is homogeneous. Normal blood flow The epididymides are normal in size and echotexture. Normal blood flow is seen. Marked scrotal skin thickening with edema. Moderate left hydrocele IMPRESSION: Moderate left hydrocele Marked scrotal skin thickening may be secondary to cellulitis or lymphatic obstruction
[2022-05-07 12:42] VITALS: BP 108/51
--- NOTE | 2022-05-07 14:14 | P.PN ---
Subjective Date of Service: 05/07/22 Chief Complaint: New onset A. fib, UTI Subjective: No new changes, No C/O voiced (Nursing staff worried about slight oozing from scrotum today) Physical Examination - Vital Signs Temperature: 97.6 F Blood Pressure: 108/51 Pulse: 58 Respirations: 16 Pulse Ox (%): 96 Assessment And Plan Physician Review: Patient Assessed, Agree with Above Assessment and Plan Physician Review Additional Text: Scrotal ultrasoundshows scrotal wall thickening worrisome for cellulitis. There is also a left hydrocele - Physical Exam General: Alert, Oriented x3 Respiratory: Clear bilaterally Cardiovascular: irregular irregular Gastrointestinal: Soft and benign; hematuria; Musculoskeletal: Minimal swelling Neurological: No focal deficits Assessment and Plan Assessment: New onset atrial fibrillation with rapid ventricular response Cystitis with hematuria Scrotal and penile edema Plan: New onset atrial fibrillation with rapid ventricular response: Rate controlled Continue sotalol On hold anticoagulation for now due to recent hematuria Echocardiogram done; normal EF as per cardiology Cardiology continues following E. coli UTI with hematuria: Improved Now with urinary retention, continue Beth Continue tamsulosin and finasteride. Status post previously discussed with urologyrecommend keep Beth and outpatient follow-up with Dr. José felix Scrotal wall cellulitis/left hydrocelecontinue indwelling Beth Decrease fluid intake advised Continue empirical antibiotics for both cystitis and scrotal wall cellulitis We will add low-dose Lasix to help with fluid removal DVT PPX: SCD for DVT Code status: Full Discharge Plan: Denied by acute rehab, currently appealed, considering home with PT, case management Possible home in a.m since able to ambulate up to >75 feet now. Time Spent Managing PTS Care (In Minutes): 35
--- NOTE | 2022-05-07 14:16 | P.PN ---
Subjective Date of Service: 05/06/22 Chief Complaint: New onset A. fib, UTI Subjective: No new changes, Ambulating (Spouse expecting hospital bed delivery at home prior to discharge from hospital Patient working with PT No new issues) Physical Examination - Vital Signs Temperature: 97.6 F Blood Pressure: 108/51 Pulse: 58 Respirations: 16 Pulse Ox (%): 96 Assessment And Plan Physician Review: Patient Assessed, Agree with Above Assessment and Plan Physician Review Additional Text: Scrotal ultrasoundshows scrotal wall thickening worrisome for cellulitis. There is also a left hydrocele - Physical Exam General: Alert, Oriented x3 Respiratory: Clear bilaterally Cardiovascular: irregular irregular Gastrointestinal: Soft and benign; hematuria; Musculoskeletal: Minimal swelling Neurological: No focal deficits Assessment and Plan Assessment: New onset atrial fibrillation with rapid ventricular response Cystitis with hematuria Scrotal and penile edema Plan: New onset atrial fibrillation with rapid ventricular response: Rate controlled Continue sotalol On hold anticoagulation for now due to recent hematuria Echocardiogram done; normal EF as per cardiology Cardiology continues following E. coli UTI with hematuria: Improved Now with urinary retention, continue Beth Continue tamsulosin and finasteride. Status post previously discussed with urologyrecommend keep Beth and outpatient follow-up with Dr. José felix DVT PPX: SCD for DVT Code status: Full Discharge Plan: Denied by acute rehab, currently appealed, considering home with PT, case management Possible home in a.m since able to ambulate up to >75 feet now.
--- NOTE | 2022-05-07 14:21 | P.DS ---
Admission Date: 04/25/22 Discharge Date: 05/07/22 Disposition: ROUTINE DISCHARGE Discharge Condition: GOOD Reason for Admission: New onset A. fib, UTI Brief History of Present Illness: History of Present Illness: 66-year-old male with a history of BPH presents the emergency department for hematuria, he was found to have urinary tract infection with urinalysis positive for nitrite, leukocyte, red blood cell urine microscopic shows greater than 50 bacteria 10-20 white blood cells too numerous to count red blood cells. During his stay in the emergency department patient developed A. fib RVR no history of A. fib his rate was around 150 160 he was given Lopressor IV and p.o., he has maintained A. fib rhythm but his rate is not controlled around 80 to 90 bpm. He had a three-way Beth catheter placed for irrigation to assess the degree of bleeding, he has had only very mild amount of bleeding during his stay in the emergency department which cleared quickly with irrigation, no obstruction or large clots noted. Urine cultures obtained patient was given Rocephin ED prior wishes to admit for further evaluation and management of new onset atrial fibrillation, UTI with hematuria. - Past Medical/Surgical History -: BPH -: Multisystem trauma with Ortho surgery of the legs Hospital Course: Hospital course Patient admitted for new onset A. fib as well as E- coli cystitis with hematuria. He was evaluated by cardiology. He had an echocardiogram, with findings of normal EF of 60% and no valvular abnormality. He was started on rate control as well as anticoagulation which was later held due to persistent hematuria. Beth was placed and hematuria resolved. Patient recommended by urology to keep Beth until complete antibiotics course and follow-up with urology as outpatient. Patient hospital course was complicated with weakness. He has difficulty ambulating. He he was felt might benefit from SNF versus inpatient rehab. Rehab evaluation was done but patient was declined for acute rehab at [facility] by insurance. Case management is assisting with home hospital bed as well as home PT. Patient has been medically stable. He will be discharged home today. Patient had a pressure of the scrotal wall with ambulation still is persistent edema of the perineal and extending to the scrotal wall and penile wall. Given persistent swelling patient was started on low-dose Lasix despite known normal EF. Scrotal ultrasound shows edema and possible cellulitis of the scrotal wall as well as left hydrocele. Patient antibiotics will be extended in addition with Levaquin for 1 week Low-salt diet significantly advised Follow-up with urologyDr. José in 1 week Continue indwelling Beth for now - Physical Exam General: Alert, In no apparent distress, Oriented x3 HEENT: Atraumatic, PERRLA, Mucous membr. moist/pink, EOMI, Sclerae nonicteric Neck: Supple, 2+ carotid pulse no bruit, No LAD, Without JVD or thyroid abnormality Respiratory: Clear to auscultation bilaterally, Normal air movement Cardiovascular: Normal S1 S2, Irregular heart rate/rhythm Capillary refill: <2 Seconds Gastrointestinal: Normal bowel sounds, No tenderness Musculoskeletal: No tenderness I GUedema of the. No scrotal wall and penile wall noted, very little to abrasion/skin tear of the posterior aspect of the scrotal wall Neurological: Normal speech, Normal strength at 5/5 x4 extr, Normal tone, Normal affect Lymphatics: No axilla or inguinal lymphadenopathy Urinary: Beth catheter Vital Signs/Physical Exam: Temp Pulse Resp BP Pulse Ox 97.6 F 58 16 108/51 L 96 05/07/22 14:15 05/07/22 14:15 05/07/22 14:15 05/07/22 14:15 05/07/22 14:15 Laboratory Data at Discharge: WBC 11.9 K/uL (4.3-10.9) H 05/05/22 05:28 Hgb 11.0 g/dL (13.6-17.9) L 05/05/22 05:28 Hct 32.9 % (39.6-49.0) L 05/05/22 05:28 Plt Count 425 K/uL (152-406) H D 05/05/22 05:28 APTT 39.2 SECONDS (24.3-36.9) H 04/25/22 00:20 Sodium 131 mmol/L (136-145) L 05/05/22 05:28 Potassium 4.2 mmol/L (3.5-5.1) 05/05/22 05:28 BUN 14 mg/dL (7-18) 05/05/22 05:28 Creatinine 0.53 mg/dL (0.55-1.3) L 05/05/22 05:28 Glucose 116 mg/dL (74-106) H 05/05/22 05:28 Magnesium 2.0 mg/dL (1.8-2.4) 05/05/22 05:28 Total Bilirubin 0.5 mg/dL (0.2-1.0) 05/02/22 06:03 AST 56 U/L (15-37) H 05/02/22 06:03 ALT 138 U/L (12-78) H 05/02/22 06:03 Alkaline Phosphatase 95 U/L (45-117) 05/02/22 06:03 Lipase 228 U/L (73-393) 04/24/22 22:35 Home Medications: Ensure High Protein 237 ml PO TID #90 can 05/03/22 Finasteride [Proscar*] 5 mg PO DAILY #30 tab 05/03/22 Hydrocodone 5/APAP 325 [[place] 5/325*] 1 tab PO Q6H PRN #30 tab 05/03/22 Sotalol HCl [Betapace*] 80 mg PO BID 6AM 6PM #60 tab 05/03/22 Tamsulosin [Flomax*] 0.8 mg PO BEDTIME #60 cap 05/03/22 Amox/Clavulanate [Augmentin 875-125 Tab] 1 each PO BID #4 tab 05/06/22 Doxycycline Monohydrate 100 mg PO BID #10 tablet 05/07/22 Furosemide [Lasix] 40 mg PO DAILY #14 tablet 05/07/22 New Medications: Amox/Clavulanate [Augmentin 875-125 Tab] 1 each PO BID #4 tab Sotalol HCl [Betapace*] 80 mg PO BID 6AM 6PM #60 tab Doxycycline Monohydrate 100 mg PO BID #10 tablet Ensure High Protein 237 ml PO TID #90 can Tamsulosin [Flomax*] 0.8 mg PO BEDTIME #60 cap Furosemide [Lasix] 40 mg PO DAILY #14 tablet Hydrocodone 5/APAP 325 [[place] 5/325*] 1 tab PO Q6H PRN #30 tab PRN Reason: Pain Scale 5-7 (Moderate) Finasteride [Proscar*] 5 mg PO DAILY #30 tab Physician Discharge Instructions: -DC IV and DC home with home health -Follow-up with PCP in 1 to 2 weeks -Follow-up with Cardiology in 1 to 2 weeks -Follow-up with urology, Dr. Chaney, in 1 to 2 weeks; please send copy of CT scan report with patient. -Please call Dr. Lewis at [phone] if any questions regarding hospital stay -Please call nursing station at [phone] if any nursing or medication questions -Return to the emergency room if symptoms worsen Diet: Low sodium Activity: Ad williams Followup: FARIHA FRIED [Primary Care Provider] - Elio Chaney [ACTIVE - CAN ADMIT] - 1 Week Time spent managing pt's care (in minutes): 35
== END 2022-05-07 12:52 | disposition home health service (06) | DRG 690 ==
LOC: ER 21:44 → ERHOLD 04-25 03:50 → 4TH 04-25 15:27 → 2ND 05-03 18:19
PROVIDERS: ADMIT Internal Medicine Nephrology; ATTEND Internal Medicine Nephrology
PROC: 0T9B70Z Drainage of Bladder with Drainage Device, Via Natural or Artificial Opening (ICD-10-PCS; principal; 2022-04-25)
DX: N39.0 Urinary tract infection, site not specified (principal); I48.91 Unspecified atrial fibrillation; B96.20 Unspecified Escherichia coli [E. coli] as the cause of diseases classified elsewhere; F12.90 Cannabis use, unspecified, uncomplicated; N40.0 Benign prostatic hyperplasia without lower urinary tract symptoms; R31.9 Hematuria, unspecified; R53.1 Weakness; N49.2 Inflammatory disorders of scrotum; N43.3 Hydrocele, unspecified; Z20.822 Contact with and (suspected) exposure to COVID-19
CPT/HCPCS: 36415; 71045; 74177; 76857; 76870; 80048; 80053; 80307; 81003; 81015; 83605; 83690; 83735; 83880; 84145; 84153; 84443; 84484; 85025; 85730; 87077; 87086; 87088; 87186; 93005; 93306; 96361; 96365; 96375; 97116; 97161; 97530; 99285; J0696; J7030; J7040; Q9967; U0003

== ENCOUNTER 2022-05-11 21:13 | Emergency (ER) | payer OTHER ==
--- OUTSIDE RECORDS SUMMARY | 2022-05-11 21:16 | XMS REPORT | Continuity of Care Document ---
:1955 Author Organization [facility] t Address [address] [place] [address] Care Team Providers Name Role Phone [phone] Attending Clinician Unavailable [phone] Admitting Clinician Unavailable Payers Payer Name Policy Type Policy Number Effective Date Expiration Date S [employer]ust[employer] [facility] [id number] Problems This patient has no known problems. Allergies, Adverse Reactions, Alerts This patient has no known allergies or adverse reactions. Medications This patient has no known medications. Procedures This patient has no known procedures. Encounters Start End Encounter Admission Attending Care Care Encounter Source Date/Time Date/Time Type Type Clinicians Facility Department ID 2022-05-09 Outpatient 3 [id number] [facility] CRD [id number] [facility] 15:14:17 0624 2022-05-01 Outpatient 3 [id number] [facility] REF [id number] [facility] 10:16:26 0616 2022-04-30 Outpatient 3 [id number] [facility] REF [id number] [facility] 15:45:28 0615 Results This patient has no known results.
[2022-05-12] MEDS ORDERED: NA CHLORIDE 0.9% 1,000 ML ONE (03:24)
[2022-05-12 03:33] LABS: Absolute Lymphocytes (CBC) 1.4 K/uL (0.7-4.9); Hematocrit 35.1 % (39.6-49.0); Lymphocytes % 9.1 % (15.3-44.8); MPV 6.4 fL (7.6-11.3); RBC Red Blood Cell Count 4.13 M/uL (4.33-5.43)
[2022-05-12 03:37] LABS: Protime INR 1.21
[2022-05-12] MEDS ORDERED: NACL 0.9% IRR SOLN 2,000 ML IRR ONE (03:47)
[2022-05-12 03:48] LABS: Albumin 3.1 g/dL (3.4-5.0); Bilirubin Direct 0.2 mg/dL (0-0.2); Bilirubin Total 0.6 mg/dL (0.2-1.0); Protein, Total 7.7 g/dL (6.4-8.2)
[2022-05-12] MEDS ORDERED: NA CHLORIDE 0.9% 100 ML ONE ×2 (05:59→09:05)
[2022-05-12] MEDS ORDERED: CEFEPIME 1 GM/VIAL ONE (05:59)
[2022-05-12 06:20] LABS: Urine Blood 3+ (Negative); Urine Glucose Negative (Negative); Urine Protein 2+ (Negative); Urine pH 5.5 (5.0-7.0)
[2022-05-12 06:35] LABS: Urine Bacteria >50 /HPF (NONE SEEN); Urine RBC >50 /HPF (NONE SEEN)
--- NOTE | 2022-05-12 08:13 | ER ---
Nurse's Notes [facility] Name: Audie Harrison Age: 66 yrs Sex: Male : 1955 Arrival Date: 05/11/2022 Time: 21:24 Bed 12 Private MD: Diagnosis: Urethral Rupture, Hydronephrosis Presentation: 05/11 22:25 Chief complaint: Patient states: "My catheter has been leaking from my penis, and I vc1 can't pee". Coronavirus screen: Vaccine status: Patient reports receiving the 2nd dose of the covid vaccine. Moderna At this time, the client does not indicate any symptoms associated with coronavirus-19. Ebola Screen: No symptoms or risks identified at this time. Initial Sepsis Screen: Does the patient meet any 2 criteria? No. Patient's initial sepsis screen is negative. Does the patient have a suspected source of infection? No. Patient's initial sepsis screen is negative. Risk Assessment: Do you want to hurt yourself or someone else? Patient reports no desire to harm self or others. Onset of symptoms is unknown. 22:25 Method Of Arrival: Ambulatory vc1 22:25 Acuity: MERCED 3 bb Triage Assessment: 22:27 General: Appears in no apparent distress. Behavior is calm, cooperative, appropriate vc1 for age. Pain: Denies pain. Historical: - Allergies: 22:27 No Known Allergies; vc1 - Home Meds: 22:27 None [Active]; vc1 - PMHx: 22:27 None; vc1 - PSHx: 22:27 None; vc1 - Immunization history:: Adult Immunizations up to date, Client reports receiving the 2nd dose of the Covid vaccine. - Social history:: Smoking status: Patient reports the use of cigarette tobacco products, denies chronic smoking, but will smoke occasionally. Screenin/27 03:08 Abuse screen: Denies threats or abuse. Nutritional screening: No deficits noted. bb Tuberculosis screening: No symptoms or risk factors identified. Fall Risk None identified. Assessment: 03:08 General: Appears in no apparent distress. uncomfortable. Neuro: Level of Consciousness bb is awake, alert, obeys commands, Oriented to person, place, time, situation. Cardiovascular: Capillary refill < 3 seconds Patient's skin is warm and dry. Respiratory: Respiratory effort is even, unlabored. : Swelling noted on penis. : Penile discharge is green, bloody. Musculoskeletal: Circulation, motion, and sensation intact. 06:01 Reassessment: phlebotomy at bedside for lab draw of blood cultures. 08:21 Reassessment: Patient appears in no apparent distress at this time. Patient and/or iw family updated on plan of care and expected duration. Pain level reassessed. Patient is alert, oriented x 3, equal unlabored respirations, skin warm/dry/pink. Vital Signs: 05/11 22:25 BP 122 / 77; Pulse 62; Resp 20; Temp 98.1(O); Pulse Ox 98% ; Weight 122.02 kg; Height 5 vc1 ft. 8 in. (172.72 cm); Pain 0/10; 05/12 03:18 BP 149 / 99; Pulse 61; Resp 20; Pulse Ox 95% on R/A; 5 08:21 BP 131 / 71; Pulse 62; Resp 16; Temp 98.1; Pulse Ox 97% on R/A; iw 05/11 22:25 Body Mass Index 40.90 (122.02 kg, 172.72 cm) vc1 ED Course: 05/11 21:24 Patient arrived in ED. bp1 22:27 Triage completed. vc1 22:27 Arm band placed on left wrist. vc1 05/12 00:53 Jamie Shields MD is Attending Physician. [facility] 03:08 Sugey Erickson, ROXY is Primary Nurse. bb 03:08 Patient has correct armband on for positive identification. Bed in low position. Call bb light in reach. Side rails up X 1. Adult w/ patient. Pulse ox on. NIBP on. 03:17 LFT's Sent. 5 03:17 Protime (+inr) Sent. 5 03:17 Ptt, Activated Sent. 5 03:17 Basic Metabolic Panel Sent. 5 03:17 CBC with Diff Sent. 5 03:17 Initial lab(s) drawn, by me, sent to lab. Inserted saline lock: 20 gauge in left 5 antecubital area, using aseptic technique. Blood collected. 03:18 Warm blanket given. 5 04:32 CT Abd/Pelvis - IV Contrast Only In Process Unspecified. EDMS 05:54 initiated a transfer with Temi from [facility]. Waiting on Covid mw2 results. 06:48 contacted [facility] spoke to Temi to give her the patients covid result. mw2 08:15 Aron Epps NP is PHCP. pm1 08:22 pt accepted in transfer to [facility] ER by dr Jodi Pascal, admin approval given bd by Maurizio Rey. 09:26 Primary Nurse role handed off by Sugey Erickson RN sr5 09:31 Karli Figueroa RN is Primary Nurse. iw Administered Medications: 03:21 Drug: NS 0.9% 1000 ml Route: IV; Rate: 1000 ml; Site: left antecubital; bb 06:29 Drug: Cefepime 1 grams Route: IVPB; Rate: 200 ml/hr; Infused Over: 30 mins; Site: left vc1 antecubital; 09:07 Drug: Ampicillin 1 grams Route: IVPB; Infused Over: 30 mins; Site: left antecubital; iw Outcome: 08:12 ER care complete, transfer ordered by . [facility] 10:24 Patient left the ED. iw Signatures: Dispatcher [employer] EDMS Zoie Baxter bd Sugey Erickson RN RN bb Karli Figueroa RN RN iw Aron Epps NP INTENSIVE CARE UNIT NURSE pm1 Graham Rodriguez RN RN sr5 Symone Cruz mh5 Renee Wiggins mw2 Cecelia Olguin Maurice, MD MD 7 Brooke Marc RN RN vc1 Corrections: (The following items were deleted from the chart) 02:55 05/11 22:25 Acuity: MERCED 4 vc1 bb 05/12 06:43 05:54 initiated a transfer with Temi from [facility] mw2 mw2
--- NOTE | 2022-05-12 08:13 | EDPHYS ---
Physician Documentation [facility] Name: Audie Harrison Age: 66 yrs Sex: Male : 1955 Arrival Date: 05/11/2022 Time: 21:24 Bed 12 Private MD: ED Physician Jamie Shields HPI: 05/12 00:55 This 66 yrs old Male presents to ER via Ambulatory with complaints of Henry mh7 cath. leaking. 00:55 The patient presents with a Henry catheter problem, is leaking urine. mh7 00:55 Onset: The symptoms/episode began/occurred 3 day(s) ago. mh7 00:55 Modifying factors: The symptoms are alleviated by nothing, the symptoms are aggravated mh7 by nothing. Associated signs and symptoms: Pertinent negatives: abdominal pain, constipation, diarrhea, dysuria, fever, hematuria, nausea, vomiting. Severity of symptoms: At their worst the symptoms were moderate, 3 day(s) ago, in the emergency department the symptoms are unchanged. Historical: - Allergies: 05/11 22:27 No Known Allergies; vc1 - Home Meds: 22:27 None [Active]; vc1 - PMHx: 22:27 None; vc1 - PSHx: 22:27 None; vc1 - Immunization history:: Adult Immunizations up to date, Client reports receiving the 2nd dose of the Covid vaccine. - Social history:: Smoking status: Patient reports the use of cigarette tobacco products, denies chronic smoking, but will smoke occasionally. ROS: 05/12 00:55 Constitutional: Negative for fever, chills, and weight loss, Eyes: Negative for injury, mh7 pain, redness, and discharge, ENT: Negative for injury, pain, and discharge, Neck: Negative for injury, pain, and swelling, Cardiovascular: Negative for chest pain, palpitations, and edema, Respiratory: Negative for shortness of breath, cough, wheezing, and pleuritic chest pain, Abdomen/GI: Negative for abdominal pain, nausea, vomiting, diarrhea, and constipation, Back: Negative for injury and pain, MS/Extremity: Negative for injury and deformity, Skin: Negative for injury, rash, and discoloration, Neuro: Negative for headache, weakness, numbness, tingling, and seizure, Psych: Negative for depression, anxiety, suicide ideation, homicidal ideation, and hallucinations, Allergy/Immunology: Negative for hives, rash, and allergies, Endocrine: Negative for neck swelling, polydipsia, polyuria, polyphagia, and marked weight changes, Hematologic/Lymphatic: Negative for swollen nodes, abnormal bleeding, and unusual bruising. Exam: 00:55 Constitutional: This is a well developed, well nourished patient who is awake, alert, mh7 and in no acute distress. Head/Face: Normocephalic, atraumatic. Eyes: Pupils equal round and reactive to light, extra-ocular motions intact. Lids and lashes normal. Conjunctiva and sclera are non-icteric and not injected. Cornea within normal limits. Periorbital areas with no swelling, redness, or edema. Neck: Trachea midline, no thyromegaly or masses palpated, and no cervical lymphadenopathy. Supple, full range of motion without nuchal rigidity, or vertebral point tenderness. No Meningismus. Chest/axilla: Normal chest wall appearance and motion. Nontender with no deformity. No lesions are appreciated. Cardiovascular: Regular rate and rhythm with a normal S1 and S2. No gallops, murmurs, or rubs. Normal PMI, no JVD. No pulse deficits. Respiratory: Lungs have equal breath sounds bilaterally, clear to auscultation and percussion. No rales, rhonchi or wheezes noted. No increased work of breathing, no retractions or nasal flaring. Abdomen/GI: Soft, non-tender, with normal bowel sounds. No distension or tympany. No guarding or rebound. No evidence of tenderness throughout. Back: No spinal tenderness. No costovertebral tenderness. Full range of motion. Skin: Warm, dry with normal turgor. Normal color with no rashes, no lesions, and no evidence of cellulitis. MS/ Extremity: Pulses equal, no cyanosis. Neurovascular intact. Full, normal range of motion. Neuro: Awake and alert, GCS 15, oriented to person, place, time, and situation. Cranial nerves II-XII grossly intact. Motor strength 5/5 in all extremities. Sensory grossly intact. Cerebellar exam normal. Normal gait. Psych: Awake, alert, with orientation to person, place and time. Behavior, mood, and affect are within normal limits. 00:55 : CVA tenderness, is absent, Male external genitalia: swelling, penile, Henry in mh7 place, Bladder: tenderness, that is moderate. 08:28 : Male external genitalia: swelling, penile, Bladder: is normal, non-distended, pm1 non-tender, a henry is noted, urine is cloudy, Henry is draining. Vital Signs: 05/11 22:25 BP 122 / 77; Pulse 62; Resp 20; Temp 98.1(O); Pulse Ox 98% ; Weight 122.02 kg; Height 5 vc1 ft. 8 in. (172.72 cm); Pain 0/10; 05/12 03:18 BP 149 / 99; Pulse 61; Resp 20; Pulse Ox 95% on R/A; mh5 08:21 BP 131 / 71; Pulse 62; Resp 16; Temp 98.1; Pulse Ox 97% on R/A; iw 05/11 22:25 Body Mass Index 40.90 (122.02 kg, 172.72 cm) vc1 MDM: 08:10 Differential diagnosis: nonspecific abdominal pain, UTI, urinary retention, Henry mh7 catheter problem, prostatitis, urethritis. Data reviewed: vital signs, nurses notes, lab test result(s), CBC, electrolytes, urinalysis, radiologic studies, CT scan. Data interpreted: Pulse oximetry: on room air is 95 %. Interpretation: normal. Counseling: I had a detailed discussion with the patient and/or guardian regarding: the historical points, exam findings, and any diagnostic results supporting the discharge/admit diagnosis, lab results, radiology results, the need to transfer to another facility, [facility] does not immediately have the required specialist. Response to treatment: the patient's symptoms have mildly improved after treatment. 08:12 Patient medically screened. [facility] 05/12 02:52 Order name: CBC with Diff; Complete Time: 04: [facility] 05/12 02:52 Order name: Basic Metabolic Panel; Complete Time: 04: [facility] 05/12 02:52 Order name: Protime (+inr); Complete Time: 04: [facility] 05/12 02:52 Order name: Ptt, Activated; Complete Time: 04: [facility] 05/12 02:52 Order name: LFT's; Complete Time: 04: [facility] 05/12 02:52 Order name: Urine Microscopic Only; Complete Time: 06:40 [facility] 05/12 02:52 Order name: Urine Culture [facility] 05/12 02:56 Order name: CT Abd/Pelvis - IV Contrast Only [facility] 05/12 05:35 Order name: COVID-19 SARS RT PCR (Document "Date of Onset" if Symptomatic); Complete [facility] Time: 07:00 05/12 05:44 Order name: Blood Culture Adult (2) 05/12 06:20 Order name: Urine Dipstick-Ancillary; Complete Time: 06:40 [facility] 05/12 02:52 Order name: Urine Dipstick-Ancillary (obtain specimen); Complete Time: 06:25 [facility] Administered Medications: 03:21 Drug: NS 0.9% 1000 ml Route: IV; Rate: 1000 ml; Site: left antecubital; 06:29 Drug: Cefepime 1 grams Route: IVPB; Rate: 200 ml/hr; Infused Over: 30 mins; Site: left vc1 antecubital; 09:07 Drug: Ampicillin 1 grams Route: IVPB; Infused Over: 30 mins; Site: left antecubital; Disposition Summary: 05/12/22 08:12 Transfer Ordered Transfer Location: [place] [id number] Reason: Higher level of care [facility] Condition: Stable [facility] Problem: new 7 Symptoms: have improved mh7 Accepting Physician: Dr. Recinos(05/12/22 10:24) iw Diagnosis - Urethral Rupture, Hydronephrosis [facility] Forms: - Medication Reconciliation Form [facility] - SBAR form [facility] Signatures: Dispatcher [employer] EDSugey Lehman RN RN bb Karli Figueroa RN RN iw Aron Epps, PARTS ORDER AND STOCK CLERK PARTS ORDER AND STOCK CLERK pm1 Jamie Shields MD MD 7 Brooke Marc RN RN vc1 Corrections: (The following items were deleted from the chart) 10: 08:12 Dr. Recinos [facility] iw
[2022-05-12] MEDS ORDERED: AMPICILLIN SODIUM 500 MG VIAL ONE (09:03)
[2022-05-12] MEDS ORDERED: NA CHLORIDE 0.9% 250 ML ONE (09:04)
[2022-05-12 10:44] VITALS: TEMP 98.1
[2022-05-12 10:47] VITALS: BP 131/71; O2SAT 97
--- NOTE | 2022-05-12 14:33 | RAD REPORT ---
EXAM DESCRIPTION: CT - Abdomen Pelvis W Contrast - 05/12/2022 6:21 am CLINICAL HISTORY: The patient is 66 years old and is Male; Abdominal abscess/infection suspected TECHNIQUE: Axial computed tomography images of the abdomen and pelvis with intravenous contrast. S agittal and coronal reformatted images were created and reviewed. This CT exam was performed using one or more of the following dose reduction techniques: automated exposure control, adjustment of t he mA and/or kV according to patient size, and/or use of iterative reconstruction technique. COMPARISON: CT abdomen pelvis April 25, 2022. FINDINGS: Lung bases: Unremarkable. No mass. No consolidation. ABDOMEN: Liver: Unremarkable. No mass. Gallbladder and bile ducts: Unremarkable. No calcified stones. No ductal dilation. Pancreas: No findings to suggest acute pancreatitis. No mass visualized. No ductal dilation. Spleen: Unremarkable. No splenomegaly. Adrenals: Unremarkable. No mass. Kidneys and ureters: Moderate bilateral hydronephrosis without ureter stone. Mild bilateral perinephric stranding, nonspecific. Right renal cysts are unchanged compared with the prior exam, the largest measuring 8.0 cm with thin calcification. No follow-up imaging recom mended. Stomach and bowel: Colonic diverticulosis. No bowel dilatation or obstruction. No bowel wall thickening. PELVIS: Appendix: The visualized appendix is normal. No pericecal inflammation to suggest acute appendic itis. Bladder: Beth catheter in place with the balloon in the penile urethra. There are fluid collect ions in the scrotum and along the posterior inferior to the penile shaft, including some with gas, co nsistent with urethral rupture. Bladder is full containing several diverticula, the largest at the bladder dome. Reproductive: Enlarged lobulated prostate gland. Scrotal edema. ABDOMEN and PELVIS: Intraperitoneal space: Unremarkable. No free air. No significant fluid collection. Bones/joints: ORIF left femur. Old fracture deformity right femur. Degenerative changes in the h ips. Multilevel degenerative changes in the lumbar spine with moderate central canal stenosis at L4-5 . No dislocation. Soft tissues: Unremarkable. Vasculature: Unremarkable. No abdominal aortic aneurysm. Lymph nodes: No pathologically enlarged lymph nodes. IMPRESSION: 1. Beth catheter has been placed with the balloon in the penile urethra. There are as sociated findings consistent with rupture of the penile urethra. 2. Bladder is distended containing several diverticula, the largest at the bladder dome. 3. Moderate bilateral hydronephrosis without ureter stone. 4. Colonic diverticulosis. 5. Enlarged lobulated prostate gland. 6. Additional non-emergent findings as above. THIS REPORT CONTAINS FINDINGS THAT MAY BE CRITICAL TO PATIENT CARE: The findings were verbally discu ssed via telephone conference with Dr. Shields 5:25 AM central time May 12, 2022. The results were acknowledged and understood. Electronically signed by: Sol Castellanos MD 05/12/2022 5:28 AM CDT Due to temporary technical issues with the PACS/Fluency reporting system, reports are being signed by the in house radiologist without review as a courtesy to ensure prompt reporting. The interpreting r adiologist is fully responsible for the content of the report.
== END 2022-05-12 10:24 | disposition short-term general hospital (02) ==
LOC: ER 21:13
DX: S37.30XA Unspecified injury of urethra, initial encounter (principal); N13.30 Unspecified hydronephrosis; F17.210 Nicotine dependence, cigarettes, uncomplicated; Z20.822 Contact with and (suspected) exposure to COVID-19
CPT/HCPCS: 87040 ×2; 87088; 85025; 87086; 80048; 36415; 85610; 80076; 85730; 74177; U0003; Q9967; J7050; J7030; J0692; J0290; 81003; 81015; 96374; 96375; 99284